=== PATIENT | female | born 1955 | race Caucasian/White ===

== ENCOUNTER → 2016-06-23 | Outpatient (CLI) | payer BC ==
[~2016-06-23] MED LIST: ACET-386; ADVAIR; ALBU17AE23; CETI1TAB2; OMEP40CA36; PANT40TA2 PO; [UNRECOGNIZED DRUG - OTHER]
--- NOTE | 2016-06-26 13:51 | Diagnostic Imaging Report ---
Bilateral screening mammogram The current study was also evaluated with a Computer Aided Detection (CAD) system. INDICATION: Screening. No current complaints stated on the questionnaire. COMPARISON: 05/14/2015. FINDINGS: The breasts are composed of scattered fibroglandular densities. Slightly more dense parenchyma in the periareolar region, however, similar to prior exams. Suggestion of an intramammary lymph node in the axillary tail of the left breast is noted. Allowing for technique and positional differences, no suspicious change is seen. IMPRESSION: No significant change. ACR BI-RADS Category 2: Benign findings. Result letter will be mailed to the patient. Note: At least 10% of breast cancer is not imaged by mammography. Dictated by: Dictated on workstation # [id number]
== END ==
LOC: RAD 14:31
PROVIDERS: ATTEND Obstetrics & Gynecology
DX: Z12.31 Encounter for screening mammogram for malignant neoplasm of breast (principal)
CPT/HCPCS: 77067

== ENCOUNTER → 2016-11-23 | Outpatient (CLI) | payer BC ==
--- NOTE | 2016-11-23 12:51 | Diagnostic Imaging Report ---
PROCEDURE: US abdomen complete. TECHNIQUE: Multiple real-time grayscale images were obtained over the abdomen in various projections. INDICATION: Abdominal bloating FINDINGS: The pancreas appears unremarkable. The liver is fairly homogeneous with no focal lesion seen. Hepatopedal flow in the portal vein is seen. The CBD is 5 mm in caliber. The gallbladder demonstrates no stones or wall thickening. Sonographic Way sign is negative. The abdominal aorta is normal in caliber. The IVC appears normal. The right kidney is 9.4 CM and the left kidney is 10.2 CM in length. No hydronephrosis or focal lesion. The spleen is 8 cm in length, normal. No ascites or fluid collection is seen. IMPRESSION: Unremarkable exam. Dictated by: Dictated on workstation # [id number]
== END ==
LOC: RAD 07:42
PROVIDERS: ATTEND Obstetrics & Gynecology
DX: R19.8 Other specified symptoms and signs involving the digestive system and abdomen (principal); N94.89 Other specified conditions associated with female genital organs and menstrual cycle
CPT/HCPCS: 76700

== ENCOUNTER → 2017-07-17 | Outpatient (CLI) | payer BC ==
--- NOTE | 2017-07-17 18:56 | Diagnostic Imaging Report ---
INDICATION: Routine screening. Comparison is made with prior exam from 06/23/2016 and 05/14/2015. 2-D and 3-D bilateral screening mammography was performed with CAD. The current study was also evaluated with a Computer Aided Detection (CAD) system. FINDINGS: Scattered fibroglandular densities are identified bilaterally. There are benign calcifications bilaterally. No dominant mass or malignant-appearing microcalcifications are seen. The axillae are unremarkable. IMPRESSION: No mammographic features suspicious for malignancy are identified. ACR BI-RADS Category 2: Benign findings. Result letter will be mailed to the patient. Note: At least 10% of breast cancer is not imaged by mammography. Dictated by: Dictated on workstation # [id number]
== END ==
LOC: RAD 14:22
PROVIDERS: ATTEND Obstetrics & Gynecology
DX: Z12.31 Encounter for screening mammogram for malignant neoplasm of breast (principal)
CPT/HCPCS: 77067

== ENCOUNTER 2017-11-20 13:32 | Outpatient (RCR) | payer BC | END 2017-11-26 07:43 | disposition home or self-care (01) | PROVIDERS: ATTEND Nurse Practitioner Family | DX: M76.32 Iliotibial band syndrome, left leg (principal); M54.5 Low back pain ==

== ENCOUNTER 2017-12-07 14:38 | Outpatient (RCR) | payer BC | END 2017-12-07 15:29 | disposition home or self-care (01) | PROVIDERS: ATTEND Nurse Practitioner Family | DX: M76.32 Iliotibial band syndrome, left leg (principal); M54.5 Low back pain ==

== ENCOUNTER → 2018-07-23 | Outpatient (CLI) | payer BC ==
--- NOTE | 2018-07-23 18:41 | Diagnostic Imaging Report ---
INDICATION: Routine screening. COMPARISON is made with prior mammograms from 07/17/2017 and 06/23/2016. TECHNIQUE: 2-D and 3-D bilateral screening mammography was performed with CAD. FINDINGS: Scattered fibroglandular densities are identified bilaterally. The parenchymal pattern is stable. No mass or malignant-appearing microcalcifications are seen. Axillae are unremarkable. IMPRESSION: BI-RADS category 1. No mammographic features suspicious for malignancy are identified. ACR BI-RADS Category 1: Negative. Result letter will be mailed to the patient. Note: At least 10% of breast cancer is not imaged by mammography. Dictated by: Dictated on workstation # [id number]
== END ==
LOC: RAD 12:40
PROVIDERS: ATTEND Obstetrics & Gynecology
DX: Z12.31 Encounter for screening mammogram for malignant neoplasm of breast (principal)
CPT/HCPCS: 77067

== ENCOUNTER → 2020-01-06 | Outpatient (CLI) | payer MEDICARE, OTHER ==
--- NOTE | 2020-01-07 09:15 | Diagnostic Imaging Report ---
INDICATION: Routine screening. COMPARISON: 07/23/2018 and 07/17/2017. TECHNIQUE: 2D and 3D bilateral screening mammography was performed with CAD. FINDINGS: Scattered fibroglandular densities are identified bilaterally. The parenchymal pattern is stable. No mass or malignant appearing microcalcifications are seen. The axillae are unremarkable. IMPRESSION: No mammographic features suspicious for malignancy are identified. ACR BI-RADS Category 1: Negative. Result letter will be mailed to the patient. Note: At least 10% of breast cancer is not imaged by mammography. Dictated by: Dictated on workstation # [id number]
== END ==
LOC: RAD 15:30
PROVIDERS: ATTEND Obstetrics & Gynecology
DX: Z12.31 Encounter for screening mammogram for malignant neoplasm of breast (principal)
CPT/HCPCS: 77063; 77067

== ENCOUNTER → 2020-07-27 | Outpatient (CLI) | payer MEDICARE, OTHER ==
--- NOTE | 2020-07-27 19:56 | Diagnostic Imaging Report ---
INDICATION: Fall with sacral pain. TIME OF EXAM: 3:14 PM Multiple views of the sacrum and coccyx were obtained. The sacral arcuate lines appear to be intact. SI joints are non-widened. Sacrococcygeal alignment is normal. No definite fracture is detected. IMPRESSION: No acute bony abnormality is detected. Dictated by: Dictated on workstation # [id number]
== END ==
LOC: RAD
PROVIDERS: ATTEND Family Medicine
DX: M53.3 Sacrococcygeal disorders, not elsewhere classified (principal); W19.XXXA Unspecified fall, initial encounter
CPT/HCPCS: 72220

== ENCOUNTER → 2020-08-17 | Outpatient (CLI) | payer MEDICARE, OTHER ==
--- NOTE | 2020-08-17 14:48 | Diagnostic Imaging Report ---
INDICATION: Fall. Back pain. COMPARISON: None FINDINGS: Frontal and lateral views of the lumbar spine were obtained. Alignment and vertebral heights are maintained. There is no fracture or destructive process. Mild multilevel degenerative disease is noted in the lumbar spine. Limited views of the abdomen demonstrate nonobstructive bowel gas pattern. IMPRESSION: 1. No acute fracture or dislocation of the lumbar spine. 2. Mild multilevel degenerative changes. Dictated by: Dictated on workstation # [id number]
== END ==
LOC: RAD 14:07
PROVIDERS: ATTEND Nurse Practitioner Family
DX: M47.816 Spondylosis without myelopathy or radiculopathy, lumbar region (principal)
CPT/HCPCS: 72100

== ENCOUNTER → 2020-08-24 | Outpatient (CLI) | payer MEDICARE, OTHER ==
--- NOTE | 2020-08-24 19:08 | Diagnostic Imaging Report ---
PROCEDURE: MRI lumbar spine. TECHNIQUE: Multiplanar, multisequence MRI of the lumbar spine was performed without contrast. DATE: August 24, 2020. COMPARISON: MRI lumbar spine September 27, 2015. INDICATION: 64-year-old female, fall in the shower. Low back pain. FINDINGS: The alignment of the lumbar spine is unremarkable. There is no compression deformity or other acute fracture. There is no focal concerning bone lesion. The visualized cord and conus medullaris is unremarkable and terminates at the L1-L2 level. There is mild disc height loss at L2-L3 and L3-L4. There is moderate to severe disc height loss at L4-L5. There are adjacent Modic endplate degenerative related changes. L1-L2: There is no disc bulge. The facet joints and ligamentum flavum are unremarkable. There is no foraminal narrowing. There is no spinal canal stenosis. L2-L3: There is no disc bulge. The facet joints and ligamentum flavum are unremarkable. There is no foraminal narrowing. There is no spinal canal stenosis. L3-L4: There is mild diffuse disc bulge. The facet joints and ligamentum flavum are unremarkable. There is no foraminal narrowing. There is no spinal canal stenosis. L4-L5: There is mild diffuse disc bulge. The facet joints and ligamentum flavum are unremarkable. There is mild right foraminal narrowing. There is no spinal canal stenosis. L5-S1: There is no disc bulge. The facet joints and ligamentum flavum are unremarkable. There is no foraminal narrowing. There is no spinal canal stenosis. IMPRESSION: 1. Mild diffuse disc bulges at L3-L4 and L4-L5 with mild right foraminal narrowing at L4-L5. 2. No focal concerning bone lesion or compression deformity. 3. Findings are very similar to September 27, 2015 MRI. Dictated by: Dictated on workstation # [id number]
== END ==
LOC: RAD 15:16
PROVIDERS: ATTEND Nurse Practitioner Family
DX: M51.26 Other intervertebral disc displacement, lumbar region (principal); M48.061 Spinal stenosis, lumbar region without neurogenic claudication
CPT/HCPCS: 72148

== ENCOUNTER 2020-10-21 15:42 | Outpatient (RCR) | payer MEDICARE, OTHER | END 2020-11-23 | disposition home or self-care (01) | PROVIDERS: ATTEND Nurse Practitioner Family | DX: M54.5 Low back pain (principal) ==

== ENCOUNTER → 2021-02-01 | Outpatient (CLI) | payer MEDICARE, OTHER ==
--- NOTE | 2021-02-01 14:58 | Diagnostic Imaging Report ---
Indication: Routine screening. Comparison is made with prior mammogram 01/06/2020 and 07/23/2018. 2-D and 3-D bilateral screening mammography was performed with CAD. Scattered fibroglandular densities are identified bilaterally. The parenchymal pattern is stable. Intraparenchymal lymph node in the upper outer left breast posterior depth stable. No spiculated mass or malignant-appearing microcalcifications are seen. Axillae are unremarkable. IMPRESSION: BI-RADS Category 2 No mammographic features suspicious for malignancy are identified. ACR BI-RADS Category 2: Benign findings. Result letter will be mailed to the patient. Note: At least 10% of breast cancer is not imaged by mammography. Dictated by: Dictated on workstation # [id number]
--- NOTE | 2021-02-01 15:48 | Diagnostic Imaging Report ---
INDICATION: Postmenopausal screening for osteoporosis COMPARISON: 03/25/2015 FINDINGS: AP Spine L1-L4: [BMD (g/cm2): 0.849] [T-Score: -2.9] [Z-Score: -0.9] [BMD Previous: 1.006] [BMD % Change: -15.6] LT Hip Neck: [BMD (g/cm2): 0.763] [T-Score: -2.0] [Z-Score: -0.2] LT Hip Total: [BMD (g/cm2):0.809] [T-Score:-1.6] [Z-Score: 0.0] [BMD Previous: 0.894] [BMD % Change: -9.5] RT Hip Neck: [BMD (g/cm2):0.820] [T-Score:-1.6] [Z-Score:0.2] RT Hip Total: [BMD (g/cm2):0.834] [T-score:-1.4] [Z-Score:0.2] [BMD Previous:0.895] [BMD % Change:-6.8] *Indicates significant change from prior examination based on 95% confidence level. World Health Organization criteria for BMD interpretation classify patients as Normal (T-score at or above -1.0), Osteopenic (T-score between -1.0 and -2.5) or Osteoporotic (T-score at or below -2.5). LIMITATIONS AND MODIFICATION: None. FRACTURE RISK (FRAX SCORE): The ten year probability of (%): Major Osteoporotic Fracture: [17.1] Hip Fracture: [2.9] IMPRESSION: 1. Osteoporosis. 2. Bone mineral density has decreased by a statistically significant amount, as detailed above. 3. See below National Osteoporosis Foundation guidelines on when to potentially initiate pharmacologic therapy. Based on the National Osteoporosis Foundation Guidelines, pharmacologic treatment should be initiated in any of the following, unless clinical conditions suggest otherwise: * Any patient with prior fragility fracture of the hip or vertebrae. A spine fracture indicates 5X risk for subsequent spine fracture and 2X risk for subsequent hip fracture. * Osteoporosis (T-score <-2.5). * Postmenopausal women and men age 50 and older with low bone mass/osteopenia (T-score between -1.0 and -2.5) by DXA and 10-year major osteoporotic fracture greater than 20% or a 10-year probability of hip fracture greater than 3%. These fracture risks are supplied above in the FRAX score, if applicable. * Clinician judgement and/or patient preferences may indicate treatment for people with 10-year fracture probabilities above or below these levels. Dictated by: Dictated on workstation # [id number]
== END ==
LOC: RAD 14:00
PROVIDERS: ATTEND Obstetrics & Gynecology
DX: Z13.820 Encounter for screening for osteoporosis (principal); Z12.31 Encounter for screening mammogram for malignant neoplasm of breast; M81.0 Age-related osteoporosis without current pathological fracture; Z78.0 Asymptomatic menopausal state
CPT/HCPCS: 77063; 77067; 77080

== ENCOUNTER → 2021-04-25 | Outpatient (RCR) | payer MEDICARE, OTHER | END | disposition home or self-care (01) | PROVIDERS: ATTEND Family Medicine | DX: M54.50 Low back pain, unspecified (principal); M25.551 Pain in right hip; M79.604 Pain in right leg; J45.909 Unspecified asthma, uncomplicated ==

== ENCOUNTER 2021-05-20 10:55 | Outpatient (CLI) | payer MEDICARE, OTHER ==
[~2021-05-20] VITALS: Ht 149.9 cm; Wt 55.0 kg
[2021-05-20] MEDS ORDERED: CATHETER FLUSH 10 ML SYR IVP SCH (11:15)
[2021-05-20] MEDS ORDERED: ZOLEDRONATE (NON-FORMULARY) 100 ML IV ONE (11:15)
[2021-05-20 11:23] VITALS: BP 135/66
== END 2021-05-20 12:34 ==
LOC: SDC 10:55
PROVIDERS: ATTEND Internal Medicine
DX: M81.0 Age-related osteoporosis without current pathological fracture (principal)
CPT/HCPCS: 96365

== ENCOUNTER 2021-05-25 13:01 | Outpatient (RCR) | payer MEDICARE, OTHER | END 2021-05-26 | disposition home or self-care (01) | PROVIDERS: ATTEND Family Medicine | DX: M54.50 Low back pain, unspecified (principal); M25.551 Pain in right hip; M79.604 Pain in right leg; J45.909 Unspecified asthma, uncomplicated ==

== ENCOUNTER 2021-06-22 14:18 | Outpatient (RCR) | payer MEDICARE, OTHER | END 2021-06-25 | disposition home or self-care (01) | PROVIDERS: ATTEND Family Medicine | DX: M54.50 Low back pain, unspecified (principal); M25.551 Pain in right hip; M79.604 Pain in right leg; R53.1 Weakness; J45.909 Unspecified asthma, uncomplicated ==

== ENCOUNTER → 2021-07-05 | Outpatient (CLI) | payer MEDICARE, OTHER ==
--- NOTE | 2021-07-05 15:59 | Diagnostic Imaging Report ---
PROCEDURE: MR imaging cervical spine without contrast. TECHNIQUE: Multiplanar, multisequence MR imaging of the cervical spine was performed without contrast. DATE: July 05, 2021. COMPARISON: Cervical spine radiographs February 27, 2015. INDICATION: 65-year-old female, neck pain and cervical radiculopathy. FINDINGS: The alignment of the cervical spine is unremarkable. There is no evidence of a diffuse marrow infiltrating or replacing process. There is no focal concerning bone lesion. The visualized spinal cord is unremarkable. There are mild endplate degenerative related changes at C6-C7 with relatively well-preserved disc heights. C2-C3: There is no disc bulge. The uncovertebral and facet joints are unremarkable. There is no foraminal narrowing. There is no spinal canal stenosis. C3-C4: There is no disc bulge. The uncovertebral and facet joints are unremarkable. There is no foraminal narrowing. There is no spinal canal stenosis. C4-C5: There is no disc bulge. The uncovertebral and facet joints are unremarkable. There is no foraminal narrowing. There is no spinal canal stenosis. C5-C6: There is no disc bulge. There are bilateral uncovertebral degenerative changes. There is mild bilateral foraminal narrowing. There is no spinal canal stenosis. C6-C7: There is a posterior disc osteophyte complex. There are mild bilateral uncovertebral degenerative changes. There is no foraminal narrowing. There is no high-grade spinal canal stenosis. C7-T1: There is no disc bulge. The uncovertebral and facet joints are unremarkable. There is no foraminal narrowing. There is no spinal canal stenosis. IMPRESSION: 1. Posterior disc osteophyte complex at C6-C7 with mild bilateral uncovertebral degenerative changes. There is no high-grade foraminal or spinal stenosis at this level. 2. Bilateral uncovertebral degenerative changes at C5-C6 with mild bilateral foraminal narrowing. 3. No focal concerning bone lesion. 4. No abnormal cord signal. Dictated by: Dictated on workstation # [id number]
--- NOTE | 2021-07-05 17:28 | Diagnostic Imaging Report ---
TECHNIQUE: Multiplanar, multisequence MRI of the thoracic spine is performed without contrast. COMPARISON: 02/27/2015. REASON FOR EXAM: Chronic mid back pain. FINDINGS: No acute fracture or dislocation is seen in the thoracic spine. Alignment is anatomic. No suspicious focal osseous lesions. No evidence of acute spinal canal stenosis. The intrinsic signal within the thoracic spinal cord is normal. No evidence of cord expansion. No epidural collections. No significant degenerative changes are seen in the thoracic spine. No high-grade spinal canal or foraminal stenosis. The paraspinal soft tissues are unremarkable. The included lungs are clear. IMPRESSION: 1. No acute fracture or dislocation in the thoracic spine. 2. No significant spinal canal or foraminal stenosis. Dictated by: Dictated on workstation # [id number]
== END ==
LOC: RAD 14:00
PROVIDERS: ATTEND Nurse Practitioner Family
DX: M54.12 Radiculopathy, cervical region (principal); M54.6 Pain in thoracic spine; G89.29 Other chronic pain
CPT/HCPCS: 72141; 72146

== ENCOUNTER 2021-07-22 14:20 | Outpatient (RCR) | payer MEDICARE, OTHER | END 2021-07-26 | disposition home or self-care (01) | PROVIDERS: ATTEND Family Medicine | DX: M54.9 Dorsalgia, unspecified (principal); M25.551 Pain in right hip; M79.604 Pain in right leg; R53.1 Weakness; J45.909 Unspecified asthma, uncomplicated ==

== ENCOUNTER 2021-08-24 15:15 | Outpatient (RCR) | payer MEDICARE, OTHER | END 2021-08-25 | disposition home or self-care (01) | PROVIDERS: ATTEND Family Medicine | DX: M54.9 Dorsalgia, unspecified (principal); J45.909 Unspecified asthma, uncomplicated; M79.606 Pain in leg, unspecified ==

== ENCOUNTER 2022-03-04 19:04 | Emergency (ER) | payer MEDICARE, OTHER ==
[~2022-03-04] VITALS: Ht 149.9 cm; Wt 54.4 kg
--- NOTE | 2022-03-04 19:40 | ED Head Injury ---
General Chief Complaint: Trauma-Non Activation Stated Complaint: FALL - HEAD LAC Nursing Triage Note: PT AMBULATE TO ROOM 05 WITHOUT DIFFICULTY WITH C/O LAC TO POST SCALP. PT REPORTS SHE WAS WALKING DOWN THE STAIRS AT HOME AND FELL 3-4 STEPS FROM BOTTOM HITTING HEAD ON A PIECE OF FURNITURE AT THE BOTTOM. PT DENIES LOC, N/V. Source: patient Exam Limitations: no limitations History of Present Illness Date Seen by Provider: Mar 04, 2022 Time Seen by Provider: 19:23 Initial Comments 66-year-old female presents to ED with after she tripped on the stairs and fell forwards towards her right side hitting her parietal region of her head resulting in a laceration. Reports right shoulder and right knee pain due to the fall, but states the pain has improved and her range of motion is normal. States she fell down approximately 4 steps, takes a baby aspirin twice a week. Denies loss of consciousness, denies dizziness/lightheadedness prior to fall. Allergies and Home Medications Allergies Coded Allergies: Penicillins (Unverified Allergy, Mild, 10/25/08) Sulfa (Sulfonamide Antibiotics) (Unverified Allergy, Mild, 10/25/08) iodine (Unverified Allergy, Mild, 10/25/08) latex (Verified Allergy, Unknown, 05/20/21) codeine (Unverified Adverse Reaction, Severe, HALLUCINATIONS, 10/25/08) Patient Home Medication List Home Medication List Reviewed: Yes Albuterol (Ventolin) 17 Gm Aerosol, (Reported) Entered as Reported by: LYDIA SILVA on 10/25/08 1405 P-Ephed Hcl/Cetirizine Hcl (Zyrtec-D Tablet) 1 Tab Tab, (Reported) Entered as Reported by: LYDIA SILVA on 10/25/08 1406 Pantoprazole Sodium (Protonix) 40 Mg Tablet., 40 MG PO DAILY Prescribed by: FARA HIGGINBOTHAM on 11/26/15 1118 Review of Systems Review of Systems Constitutional: see HPI Past Thutodx-Ogcglf-Zujtpz Hx Patient Social History Tobacco Use?: No Smoking Status: Never a Smoker Smokeless Tobacco Frequency: Never a User Use of E-Cig and/or Vaping dev: No Use of E-Cig and/or Vaping Nilson: Never a User Substance use?: No Alcohol Use?: No Pt feels they are or have been: No Past Medical History Reproductive Disorders: Yes Physical Exam Vital Signs Vital Signs - First Documented Capillary Refill : Less Than 3 Seconds Height, Weight, BMI Height: 5'1.00" Weight: 123lbs. 0.0oz. 55.916483ht; 24.00 BMI Method: General Appearance: WD/WN, no apparent distress HEENT: PERRL/EOMI, TMs normal Neck: full range of motion, supple, normal inspection, tender lateral Cardiovascular: regular rate, rhythm, no edema, no gallop, no JVD, no murmur Respiratory: lungs clear, normal breath sounds, no respiratory distress, no accessory muscle use Extremities: normal range of motion, non-tender, normal inspection Skin: normal color, warm/dry, other (laceration, hematoma posterior head) Procedures/Interventions Wound Location: Scalp Other Wound Location 1 cm Wound Explored: clean Irrigated w/ Saline (ccs): 250 Staple Repair: Stapler 35W Number of Sutures: 3 Progress/Results/Core Measures Results/Orders My Orders Orders - GORDON LANGE APRN Ct Head/Cervical Spine Wo (03/04/22 19:31) Shoulder, Right, 3 Views (03/04/22 20:10) Vital Signs/I&O 03/04/22 03/04/22 03/04/22 19:10 19:10 20:55 Temp 36.8 36.8 36.2 Pulse 89 89 81 Resp 17 17 16 B/P (MAP) 149/77 (101) 149/77 (101) 141/72 Pulse Ox 99 98 O2 Delivery Room Air Room Air Room Air Blood Pressure Mean: 101 Progress Progress Note #1: Time: 19:42 Progress Note Patient seen and evaluated, resting comfortably on the bed, no acute distress. Based on exam, presentation, and [place] CT head score (age > 65, aspirin use, and dangerous mechanism), will order CT scan of the head and neck. Progress Note #2: Time: 20:11 Progress Note 1 cm laceration noted to posterior head, 3 yaneli placed. Considered x-ray of the right shoulder due to pain, not ordered due to normal range of motion. Patient requesting x-ray of the right shoulder, will order Progress Note #3: Time: 20:32 Progress Note Interpretation of right shoulder x-ray completed by provider, no acute fractures noted. Official radiology read reported the same interpretation. Radiology report CT of the head and neck reviewed, no acute findings for intracranial hemorrhage, or fracture. Progress Note #4: Time: 20:41 Progress Note Test results discussed with patient. Return precautions provided for closed head injuries. Follow-up instructions provided for staple removal and shoulder pain. Diagnostic Imaging Diagonstic Imaging: CT Plain Films/CT/US/NM/MRI: c-spine, head Comments [facility], [place] NAME: ARNAUD DIGGS [facility] REC#: [id number] PT STATUS: REG ER : 1955 PHYSICIAN: GORDON LANGE APRN ADMIT DATE: 03/04/22/ER Signed Date of Exam:03/04/22 CT HEAD/CERVICAL SPINE WO PROCEDURE: CT head and CT cervical spine without contrast. TECHNIQUE: Multiple contiguous axial images were obtained through the brain and cervical spine without the use of intravenous contrast. Sagittal and coronal reformations through the cervical spine were then performed. Auto Exposure Controls were utilized during the CT exam to meet ALARA standards for radiation dose reduction. DATE: March 04, 2022. COMPARISON: MRI cervical spine July 05, 2021. INDICATION: 66-year-old female, fall. Head and neck pain. Laceration of the posterior scalp. FINDINGS: There is no identified skull fracture. The ventricles and cerebral spinal fluid spaces are of normal size and configuration for the patient's age. There is no mass effect or midline shift. There is no acute intracranial hemorrhage. There is no abnormal extra-axial fluid collection. There is a very small amount of fluid layering in the sphenoid sinuses, bilaterally. There is no identified facet joint subluxation or dislocation. There is moderate disc height loss at C3-C4, C4-C5 and C5-C6. There are posterior disc osteophyte complexes at these levels. CT is limited for assessment of disc pathology as well as additional non-bony causes of pathology in the spinal canal. There is no identified acute fracture of the cervical spine. The visualized portions of the lung apices are clear. IMPRESSION: 1. No identified acute intracranial abnormality. 2. No identified acute abnormality of the cervical spine. 3. Disc degenerative changes of the cervical spine. 4. Very small amounts of fluid layering in the sphenoid sinuses. Recommend correlation for possible acute sinusitis. Dictated by: Dictated on workstation # [id number] Dict: 03/04/221949 Trans: 03/04/222004 PJE [id number] Interpreted by: SUGEY ODONNELL MD Electronically signed by: SUGEY ODONNELL MD 03/04/222004 Diagonstic Imaging: Xray Plain Films/CT/US/NM/MRI: other (shoulder) Comments [facility], [place] NAME: ARNAUD DIGGS [facility] REC#: [id number] PT STATUS: REG ER : 1955 PHYSICIAN: GORDON LANGE APRN ADMIT DATE: 03/04/22/ER Draft Date of Exam:03/04/22 SHOULDER, RIGHT, 3 VIEWS EXAMINATION: Right shoulder radiographs, 3 views. COMPARISON: None. HISTORY: 66-year-old female, right shoulder pain. FINDINGS: There is no identified acute fracture. The humeral head is normally positioned relative to the glenoid. The glenohumeral joint space is well-maintained. The acromioclavicular joint is normally aligned. There are no prominent acromioclavicular degenerative changes. IMPRESSION: Unremarkable radiographs of the right shoulder. Dictated on workstation # [id number] Dict: 03/04/222022 Trans: 03/04/222024 PJE [id number] Interpreted by: SUGEY ODONNELL MD Electronically signed by: Departure Impression Primary Impression: Head injury due to trauma Qualified Codes: S09.90XA - Unspecified injury of head, initial encounter Additional Impressions: Fall (on) (from) other stairs and steps, initial encounter Laceration of head Qualified Codes: S01.01XA - Laceration without foreign body of scalp, initial encounter Shoulder injury Disposition: 01 HOME, SELF-CARE Condition: Stable Departure-Patient Inst. Decision time for Depature: 20:35 Referrals: LUNA NICHOLAS MD (PCP/Family) Primary Care Physician Patient Instructions: Laceration Repair With Mobile ED, Head Injury in Adults Add. Discharge Instructions: Plan: 1. Discharge home. 2. Observe the patient for 24-48 hours. Contact your family physician, or return to the ER immediately if any of the following are observed. -Repeated vomiting -Confusion, delirium or disorientation -Blurred vision or double vision -A difference in pupil size comparing left to right (black part of the eye) -Twitching or convulsions -Clear or blood fluid from the nose or ears -Persistent headaches or the worst headache of your life -Weakness of face, arm or leg muscles -Difficulty in arousing patient (the patient should be awakened every 2 hours during the first night) 3. Take nothing stronger than Tylenol or Ibuprofen for pain. Take per package directions. 4. Avoid alcohol intake. 5. Return to ER for any other new, concerning, or worsening symptoms. WOUND CARE 6. Keep wound clean and dry 7. Leave open to air after a few days. 8. Make apply ice pack for swelling. 9. Despite the best care, any wound can become infected. Watch for increase in redness, swelling, increase in pain, drainage, or fever and report any of these to your physician or return to the emergency room. 10. Return to the ER in 7-10 days to have your 3 yaneli removed. SHOULDER INJURY 11. No fracture, may have injury to muscles/ligaments 12. Apply ice for pain. 13. Follow up with primary care provider if pain continues. All discharge instructions reviewed with patient and/or family. Voiced understanding. GORDON LANGE APRN Mar 04, 2022 19:40
--- NOTE | 2022-03-04 20:01 | Diagnostic Imaging Report ---
PROCEDURE: CT head and CT cervical spine without contrast. TECHNIQUE: Multiple contiguous axial images were obtained through the brain and cervical spine without the use of intravenous contrast. Sagittal and coronal reformations through the cervical spine were then performed. Auto Exposure Controls were utilized during the CT exam to meet ALARA standards for radiation dose reduction. DATE: March 04, 2022. COMPARISON: MRI cervical spine July 05, 2021. INDICATION: 66-year-old female, fall. Head and neck pain. Laceration of the posterior scalp. FINDINGS: There is no identified skull fracture. The ventricles and cerebral spinal fluid spaces are of normal size and configuration for the patient's age. There is no mass effect or midline shift. There is no acute intracranial hemorrhage. There is no abnormal extra-axial fluid collection. There is a very small amount of fluid layering in the sphenoid sinuses, bilaterally. There is no identified facet joint subluxation or dislocation. There is moderate disc height loss at C3-C4, C4-C5 and C5-C6. There are posterior disc osteophyte complexes at these levels. CT is limited for assessment of disc pathology as well as additional non-bony causes of pathology in the spinal canal. There is no identified acute fracture of the cervical spine. The visualized portions of the lung apices are clear. IMPRESSION: 1. No identified acute intracranial abnormality. 2. No identified acute abnormality of the cervical spine. 3. Disc degenerative changes of the cervical spine. 4. Very small amounts of fluid layering in the sphenoid sinuses. Recommend correlation for possible acute sinusitis. Dictated by: Dictated on workstation # [id number]
--- NOTE | 2022-03-04 20:25 | Diagnostic Imaging Report ---
EXAMINATION: Right shoulder radiographs, 3 views. COMPARISON: None. HISTORY: 66-year-old female, right shoulder pain. FINDINGS: There is no identified acute fracture. The humeral head is normally positioned relative to the glenoid. The glenohumeral joint space is well-maintained. The acromioclavicular joint is normally aligned. There are no prominent acromioclavicular degenerative changes. IMPRESSION: Unremarkable radiographs of the right shoulder. Dictated by: Dictated on workstation # [id number]
[2022-03-04 20:55] VITALS: BP 141/72
== END 2022-03-04 20:55 | disposition home or self-care (01) ==
LOC: EDUNIT# 19:04 → ER 19:05
DX: S09.90XA Unspecified injury of head, initial encounter (principal); S01.01XA Laceration without foreign body of scalp, initial encounter; S49.91XA Unspecified injury of right shoulder and upper arm, initial encounter; Z79.82 Long term (current) use of aspirin; W10.9XXA Fall (on) (from) unspecified stairs and steps, initial encounter; Y92.009 Unspecified place in unspecified non-institutional (private) residence as the place of occurrence of the external cause
CPT/HCPCS: 70450; 72125; 73030

== ENCOUNTER → 2022-03-09 | Outpatient (CLI) | payer MEDICARE, OTHER ==
--- NOTE | 2022-03-09 17:41 | Diagnostic Imaging Report ---
INDICATION: Fall, pain. Two-view right ribs performed. FINDINGS: The right lung clear. No effusion or pneumothorax. The sergey and mediastinal contours normal. No free air beneath the right diaphragm. Degenerative changes to the right shoulder are present. The clavicle intact. No rib fracture deformity, focal pleural hematoma, bony erosion or cortical irregularity. IMPRESSION: Unremarkable right rib series. Dictated by: Dictated on workstation # [id number]
== END ==
LOC: RAD 15:51
PROVIDERS: ATTEND Nurse Practitioner Family
DX: R07.81 Pleurodynia (principal)
CPT/HCPCS: 71100

== ENCOUNTER 2022-03-14 12:25 | Emergency (ER) | payer MEDICARE, OTHER ==
[2022-03-14] MEDS ORDERED: CEPHALEXIN 250 MG (KEFLEX) CAP PO STA (13:05)
--- NOTE | 2022-03-14 13:12 | ED General ---
General Chief Complaint: General Problems/Pain Stated Complaint: STAPLE REMOVAL | Nursing Triage Note: PT AMB TO RM 6 FOR STAPEL REMOVAL AND C/O R RIB PAIN AND R KNEE PAIN CONTINUTING SINCE THE ORIGINAL FALL. PT STATES SHE HAD OUTPAITNE XRAY OF RIBS THAT WAS CLEAR Source of Information: Patient, Old Records Exam Limitations: No Limitations History of Present Illness Date Seen by Provider: Mar 14, 2022 Time Seen by Provider: 12:34 Initial Comments Very pleasant 66-year-old female presenting for reevaluation after she had a fall 10 days ago presented to our ER. She had yaneli to her head which she came to get removed. She is having persistent right knee pain and right-sided rib pain. Better with Tylenol. She also try some gabapentin which helps her to sleep. She denies any new chest pain, shortness of breath, abdominal pain, nausea, vomiting, diarrhea, fever, chills, focal weakness or numbness, or any other concerns. She is ambulating without difficulty. She does note a "carpet burn" to her right knee which when her pants rub on it causes irritation and burning. She states she has noticed increasing redness to the area and she was wanting to be evaluated for an infection potentially. Allergies and Home Medications Allergies Coded Allergies: Penicillins (Unverified Allergy, Mild, 10/25/08) Sulfa (Sulfonamide Antibiotics) (Unverified Allergy, Mild, 10/25/08) iodine (Unverified Allergy, Mild, 10/25/08) latex (Verified Allergy, Unknown, 05/20/21) codeine (Unverified Adverse Reaction, Severe, HALLUCINATIONS, 10/25/08) Patient Home Medication List Home Medication List Reviewed: Yes Albuterol (Ventolin) 17 Gm Aerosol, (Reported) Entered as Reported by: LYDIA SILVA on 10/25/08 1405 P-Ephed Hcl/Cetirizine Hcl (Zyrtec-D Tablet) 1 Tab Tab, (Reported) Entered as Reported by: LYDIA SILVA on 10/25/08 1406 Pantoprazole Sodium (Protonix) 40 Mg Tablet., 40 MG PO DAILY Prescribed by: FARA HIGGINBOTHAM on 11/26/15 1118 Review of Systems Review of Systems Constitutional: No fever EENTM: no symptoms reported Respiratory: no symptoms reported Cardiovascular: no symptoms reported Gastrointestinal: no symptoms reported Genitourinary: no symptoms reported Musculoskeletal: see HPI Skin: see HPI Psychiatric/Neurological: No Symptoms Reported Hematologic/Lymphatic: No Symptoms Reported All Other Systems Reviewed Negative Unless Noted: Yes Past Fhurwll-Dwcyxb-Xcasiy Hx Patient Social History Tobacco Use?: No Substance use?: No Alcohol Use?: Yes Alcohol Frequency: Rarely Pt feels they are or have been: No Immunizations Up To Date Influenza Vaccine Up-to-Date: No; Not Current First/Initial COVID19 Vaccinat: YES Second COVID19 Vaccination Harsh: YES Third COVID19 Vaccination Date: YES Past Medical History Surgery/Hospitalization HX: OSTEOPOROSIS, ASTHMA CARPEL TUNNEL, APPY, Surgeries: Yes Reproductive Disorders: Yes Physical Exam Vital Signs Vital Signs - First Documented 03/14/22 12:30 Temp 36.6 Pulse 83 Resp 16 B/P (MAP) 142/76 (98) Capillary Refill : Height, Weight, BMI Height: 5'1.00" Weight: 123lbs. 0.0oz. 55.643775ym; 24.00 BMI Method: General Appearance: No Apparent Distress, WD/WN Eyes: Bilateral Eye Normal Inspection HEENT: PERRL/EOMI, Normal ENT Inspection, Pharynx Normal Neck: Full Range of Motion, Normal Inspection, Non Tender, Supple Respiratory: Lungs Clear, Normal Breath Sounds, No Accessory Muscle Use, No Respiratory Distress, Other (Right lateral chest wall tenderness to palpation) Cardiovascular: Regular Rate, Rhythm, No Edema, Normal Peripheral Pulses Gastrointestinal: Normal Bowel Sounds, Non Tender, Soft; No Guarding Back: Normal Inspection, No CVA Tenderness, No Vertebral Tenderness Extremity: Normal Capillary Refill, Normal Range of Motion, No Calf Tenderness, No Pedal Edema, Other (Right knee with a healing wound with scab present, some mild erythema that spreads roughly 1-1/2 cm around it, no significant warmth compared to the other knee, no drainage) Neurologic/Psychiatric: Alert, No Motor/Sensory Deficits, Normal Mood/Affect Skin: Normal Color, Warm/Dry Lymphatic: No Adenopathy Progress/Results/Core Measures Suspected Sepsis SIRS Temperature: Pulse: 83 Respiratory Rate: 16 Blood Pressure 142 /76 Mean: 98 Results/Orders My Orders Orders - ADAM KRUGER MD Cephalexin Capsule (Keflex Capsule) (03/14/22 13:05) Vital Signs/I&O 03/14/22 12:30 Temp 36.6 Pulse 83 Resp 16 B/P (MAP) 142/76 (98) Capillary Refill : Blood Pressure Mean: 98 Progress Note : Progress Note 66-year-old female with above history coming in due to getting her yaneli removed as well as evaluation for potential infection in her right knee and continued right-sided chest wall pain after the fall. ABCs were intact and vitals were stable on presentation. Physical exam with some very mild erythema to the right knee where the excoriation is present, does not look overtly infected, just appears like it is healing, certainly is possible this is early cellulitis, but she says it looked pretty stable with no changes to the redness. We will do a [id number] prescription where I will send in some Keflex and if the redness starts spreading she is to fill the prescription and then seek follow-up for reevaluation with a physician. In regards to the right-sided chest wall pain, x-rays were negative for fracture, I discussed she still could have clinically a rib fracture that is nondisplaced that potentially would have showed up on CT scan. I discussed that this would not really affect our management this far out, and likely is in its normal process of healing. She does not have any pneumothorax, normal vitals today with no clinical signs of pneumonia. I discussed pain management and offered multiple options including hydrocodone to help deal with the pain for the next couple of days. She states that she has some leftover from a previous prescription which she can take if she needs. Otherwise, I do not believe she has any large displaced fractures anywhere based on x-ray imaging. I do not believe she has an occult fracture in her knee given her ease of ambulation. I believe she is stable for discharge with outpatient follow-up. She was sent home with strict return precautions. Of note, the patient states she had a rash to penicillin as a child. We gave her a dose of Keflex in the ER and she did not have any type of reaction. Departure Impression Primary Impression: Fall Qualified Codes: W19.XXXD - Unspecified fall, subsequent encounter Additional Impressions: Knee contusion Qualified Codes: S80.01XD - Contusion of right knee, subsequent encounter Rib contusion Qualified Codes: S20.211D - Contusion of right front wall of thorax, subsequent encounter Disposition: HOME, SELF-CARE Condition: Stable Departure-Patient Inst. Decision time for Depature: 13:13 Referrals: LUNA NICHOLAS MD (PCP/Family) Primary Care Physician Patient Instructions: Rib Fracture or Bruised Rib ED Add. Discharge Instructions: I do think it is very possible you have a nondisplaced rib fracture that potentially would show up if we did more advanced imaging such as a CT scan. Since this will not really changeover operator, we will forego on this to prevent radiation and the cost associated with it. I recommend taking Tylenol as needed for pain. If you have persistent pain on top of this you can take the gabapentin or the hydrocodone that you mentioned that you have at home. You can also do typical things such as icing the area. Typically bones take roughly 6 weeks to heal if this is the case. With your knee, it does not necessarily look infected today, although it could be early infection. Please watch the skin closely and take pictures daily. If you notice redness spreading, new drainage from the wound that is not clear and is concerning, or new fever with it, then I would want you to fill the prescription for the Keflex and take this. If you do have concerns for infection and you fill the prescription, please follow-up with the doctor to be sure it is getting looked at again. We did give you a dose of this antibiotic in the ER since it is a cousin of penicillin, and you did not seem to have any type of reaction to it. You should be safe to take it if needed. Scripts Cephalexin (Cephalexin) 500 Mg Tablet 500 MG PO QID for 7 Days, #28 TAB Prov: ADAM KRUGER MD 03/14/22 Work/School Note: Work Release Form Date Seen in the Emergency Department: Mar 14, 2022 Return to Work: Mar 15, 2022 Restrictions: No Restrictions ADAM KRUGER MD Mar 14, 2022 13:12
[2022-03-14] MEDS ORDERED: CEPH500T PO (13:16)
[2022-03-14 13:27] VITALS: BP 124/62
== END 2022-03-14 13:27 | disposition home or self-care (01) ==
LOC: EDUNIT# 12:25 → ER 12:28
DX: S80.01XD Contusion of right knee, subsequent encounter (principal); S20.211D Contusion of right front wall of thorax, subsequent encounter; Z88.1 Allergy status to other antibiotic agents; W19.XXXA Unspecified fall, initial encounter
CPT/HCPCS: 99283

== ENCOUNTER → 2022-04-03 | Outpatient (CLI) | payer MEDICARE, OTHER ==
[~2022-04-03] MED LIST changes: +CEPH500T PO
--- NOTE | 2022-04-03 16:08 | Diagnostic Imaging Report ---
INDICATION: Routine screening. Comparison is made with prior mammogram with 02/01/2021 and 01/06/2020. 2-D and 3-D bilateral screening mammography was performed with CAD. Scattered fibroglandular densities are identified bilaterally. The parenchymal pattern is stable. No mass or malignant-appearing microcalcifications are seen. Axillae are unremarkable. IMPRESSION: No mammographic features suspicious for malignancy are identified. ACR BI-RADS Category 2: Benign findings. Result letter will be mailed to the patient. Note: At least 10% of breast cancer is not imaged by mammography. BI-RADS Category 2 Dictated by: Dictated on workstation # [id number]
== END ==
LOC: RAD 15:15
PROVIDERS: ATTEND Family Medicine
DX: Z12.31 Encounter for screening mammogram for malignant neoplasm of breast (principal); M81.0 Age-related osteoporosis without current pathological fracture
CPT/HCPCS: 77063; 77067

== ENCOUNTER → 2022-06-06 | Outpatient (CLI) | payer MEDICARE, OTHER ==
[~2022-06-06] MED LIST changes: +ASPI-999 PO; +BIOT1TAB22 PO; +CA C1TAB70 PO; +CETI1TAB61 PO; +ELUX100T PO; +FAMO40TA6 PO; +FLUO60GE TP; +FLUT1DIS28 IH; +FLUT9.9S NS; +FOLI400T4 PO; +HYOS-19 SL; +MONT-40 PO; +MV-M1TAB57 PO; +OMEG1CAP58 PO; +POTA99TA17 PO; +RT-ALBUINH INH; +TRIA15CR TP; +UBID50TA3 PO; +[UNRECOGNIZED DRUG - CODE] PO
--- NOTE | 2022-06-06 14:28 | Diagnostic Imaging Report ---
INDICATION: Postmenopausal state. COMPARISON: 02/01/2021. FINDINGS: AP Spine L1-L4: [BMD (g/cm2): 0.943] [T-Score: -2.1] [Z-Score: -0.1] [BMD Previous: 0.849] [BMD % Change: 11.1] LT Hip Neck: [BMD (g/cm2): 0.803] [T-Score: -1.7] [Z-Score: 0.2] LT Hip Total: [BMD (g/cm2):0.828] [T-Score:-1.4] [Z-Score: 0.2] [BMD Previous: 0.809] [BMD % Change: 2.3] RT Hip Neck: [BMD (g/cm2):0.824] [T-Score:-1.5] [Z-Score:0.3] RT Hip Total: [BMD (g/cm2):0.835] [T-score:-1.4] [Z-Score:0.3] [BMD Previous:0.834] [BMD % Change:0.1] *Indicates significant change from prior examination based on 95% confidence level. World Health Organization criteria for BMD interpretation classify patients as Normal (T-score at or above -1.0), Osteopenic (T-score between -1.0 and -2.5) or Osteoporotic (T-score at or below -2.5). LIMITATIONS AND MODIFICATION: None. FRACTURE RISK (FRAX SCORE): The ten year probability of (%): Major Osteoporotic Fracture: [16.1] Hip Fracture: [2.4] IMPRESSION: 1. Osteopenia (Low bone mass). 2. Bone mineral density within the lumbar spine has significantly increased since the prior examination, though some of this appearance could be artifactual secondary to degenerative hypertrophic changes. Bone mineral density within the bilateral hips has not significantly changed. 3. See below National Osteoporosis Foundation guidelines on when to potentially initiate pharmacologic therapy. Based on the National Osteoporosis Foundation Guidelines, pharmacologic treatment should be initiated in any of the following, unless clinical conditions suggest otherwise: * Any patient with prior fragility fracture of the hip or vertebrae. A spine fracture indicates 5X risk for subsequent spine fracture and 2X risk for subsequent hip fracture. * Osteoporosis (T-score <-2.5). * Postmenopausal women and men age 50 and older with low bone mass/osteopenia (T-score between -1.0 and -2.5) by DXA and 10-year major osteoporotic fracture greater than 20% or a 10-year probability of hip fracture greater than 3%. These fracture risks are supplied above in the FRAX score, if applicable. * Clinician judgement and/or patient preferences may indicate treatment for people with 10-year fracture probabilities above or below these levels. Dictated by: Dictated on workstation # [id number]
== END ==
LOC: RAD 12:30
PROVIDERS: ATTEND Internal Medicine
DX: M81.0 Age-related osteoporosis without current pathological fracture (principal); M85.80 Other specified disorders of bone density and structure, unspecified site; Z78.0 Asymptomatic menopausal state
CPT/HCPCS: 77080

== ENCOUNTER 2022-06-08 05:32 | Outpatient (CLI) | payer MEDICARE, OTHER ==
[~2022-06-08] VITALS: Ht 149.9 cm; Wt 53.2 kg
[~2022-06-08 05:32] MED LIST changes: -ASPI-999 PO; -BIOT1TAB22 PO; -CA C1TAB70 PO; -CETI1TAB61 PO; -ELUX100T PO; -FAMO40TA6 PO; -FLUO60GE TP; -FLUT1DIS28 IH; -FLUT9.9S NS; -FOLI400T4 PO; -HYOS-19 SL; -MONT-40 PO; -MV-M1TAB57 PO; -OMEG1CAP58 PO; -POTA99TA17 PO; -RT-ALBUINH INH; -TRIA15CR TP; -UBID50TA3 PO; -[UNRECOGNIZED DRUG - CODE] PO
[2022-06-08] MEDS ORDERED: ASPI-999 PO (15:04)
[2022-06-08] MEDS ORDERED: MONT-40 PO (15:04)
[2022-06-08] MEDS ORDERED: OMEG1CAP58 PO (15:04)
[2022-06-08] MEDS ORDERED: POTA99TA17 PO (15:04)
[2022-06-08] MEDS ORDERED: UBID50TA3 PO (15:04)
[2022-06-08] MEDS ORDERED: MV-M1TAB57 PO (15:04)
[2022-06-08] MEDS ORDERED: FLUT1DIS28 IH (15:04)
[2022-06-08] MEDS ORDERED: FLUT9.9S NS (15:04)
[2022-06-08] MEDS ORDERED: CA C1TAB70 PO (15:04)
[2022-06-08] MEDS ORDERED: TRIA15CR TP (15:04)
[2022-06-08] MEDS ORDERED: [UNRECOGNIZED DRUG - CODE] PO (15:04)
[2022-06-08] MEDS ORDERED: BIOT1TAB22 PO (15:04)
[2022-06-08] MEDS ORDERED: FOLI400T4 PO (15:04)
[2022-06-08] MEDS ORDERED: FLUO60GE TP (15:04)
[2022-06-08] MEDS ORDERED: RT-ALBUINH INH (15:04)
[2022-06-08] MEDS ORDERED: CETI1TAB61 PO (15:04)
[2022-06-08] MEDS ORDERED: ELUX100T PO (15:04)
[2022-06-08] MEDS ORDERED: HYOS-19 SL (15:04)
[2022-06-08] MEDS ORDERED: FAMO40TA6 PO (15:04)
== END 2022-06-08 15:06 | disposition home or self-care (01) ==
LOC: PREOP 05:32
PROVIDERS: ATTEND Specialist
DX: Z01.818 Encounter for other preprocedural examination (principal)

== ENCOUNTER 2022-06-16 07:05 | Day surgery (SDC) | payer MEDICARE, OTHER ==
[~2022-06-16] VITALS: Ht 149.9 cm; Wt 53.2 kg
[~2022-06-16 07:05] MED LIST changes: +ASPI-999 PO; +BIOT1TAB22 PO; +CA C1TAB70 PO; +CETI1TAB61 PO; +ELUX100T PO; +FAMO40TA6 PO; +FLUO60GE TP; +FLUT1DIS28 IH; +FLUT9.9S NS; +FOLI400T4 PO; +HYOS-19 SL; +MONT-40 PO; +MV-M1TAB57 PO; +OMEG1CAP58 PO; +POTA99TA17 PO; +RT-ALBUINH INH; +TRIA15CR TP; +UBID50TA3 PO; +[UNRECOGNIZED DRUG - CODE] PO
[2022-06-16] MEDS ORDERED: MOXIFLOXACIN OPHTH SOLN 5 MG/ML 0.3 ML SYRINGE OP ONE (07:15)
[2022-06-16] MEDS ORDERED: POVIDONE (BETADINE) OPHTH SOLN 5% 30 ML OP ONE (07:15)
[2022-06-16] MEDS ORDERED: TIMOLOL 0.5% (CATARACTS) 0.3 ML BTL OU PRN (07:15)
[2022-06-16] MEDS ORDERED: MIDAZOLAM 2 MG/2 ML (VERSED) VIAL ONE (07:20)
[2022-06-16] MEDS: TETRACAINE 0.5% OPHTH SOLN 4 ML BTL (SINGLE DOSE ONLY) OU PRN ×4 (07:26→07:46)
[2022-06-16 07:32] VITALS: BP 131/64
[2022-06-16] MEDS: PHENYLEPHRINE 10% OPHTH (NEO-SYN) 5 ML BTL OU SCH ×3 (07:36→07:47)
[2022-06-16] MEDS: TROPICAMIDE 1% OPH SOLN (MYDRIACYL) 15 ML BTL OP SCH ×3 (07:36→07:47)
--- NOTE | 2022-06-16 07:42 | Ophthalmologist Pre-Op Note ---
Pre-Operative Progress Note H&P Reviewed The H&P was reviewed, patient examined and no changes noted. Date H&P Reviewed: Jun 16, 2022 Time H&P Reviewed: 07:42 Pre-Op Dx Cataract, Right Eye DONY MICHAEL MD Jun 16, 2022 07:42
--- NOTE | 2022-06-16 08:04 | Ophthalmology Operative Report ---
Cataract removal/placement IOL PREOPERATIVE DIAGNOSIS: Cataract Right Eye POSTOPERATIVE DIAGNOSIS: Cataract Right Eye PROCEDURE: Cataract removal and placement of posterior chamber implant, right eye SURGEON: Monroe Michael ANESTHESIA: Topical with sedation COMPLICATIONS: None ESTIMATED BLOOD LOSS: Minimal DESCRIPTION OF PROCEDURE: After proper informed consent was obtained, the patient, a 66 female, was taken to the Operating Room and the right eye was anesthetized with tetracaine. The right eye was then prepped and draped in the usual manner. A wire lid speculum was placed. A paracentesis was made at the left hand position. Preservative free lidocaine was injected into the anterior chamber followed by viscoelastic. A clear corneal incision was made in the temporal position. A capsulorrhexis was preformed and the central nuclear and cortical material were removed. The posterior capsule was polished and Josué 20.5 AU00T0 IOL was placed into the capsular bag. The residual viscoelastic was aspirated and balanced saline solution was injected into the anterior chamber. Moxifloxacin was injected into the anterior chamber. The wound was checked and found to be water tight. The patient tolerated the procedure well without complications. MONROE MICHAEL MD Jun 16, 2022 08:04
--- NOTE | 2022-06-16 08:06 | Ophthalmologist Pre-Op Note ---
Pre-Operative Progress Note H&P Reviewed The H&P was reviewed, patient examined and no changes noted. Date H&P Reviewed: Jun 16, 2022 Time H&P Reviewed: 08:06 Pre-Op Dx Cataract, Left Eye DONY MICHAEL MD Jun 16, 2022 08:06
--- NOTE | 2022-06-16 08:27 | Ophthalmology Operative Report ---
Cataract removal/placement IOL PREOPERATIVE DIAGNOSIS: Cataract Left Eye POSTOPERATIVE DIAGNOSIS: Cataract Left Eye PROCEDURE: Cataract removal and placement of posterior chamber implant, left eye SURGEON: Monroe Michael ANESTHESIA: Topical with sedation COMPLICATIONS: None ESTIMATED BLOOD LOSS: Minimal DESCRIPTION OF PROCEDURE: After proper informed consent was obtained, the patient, a 66 female, was taken to the Operating Room and the left eye was anesthetized with tetracaine. The left eye was then prepped and draped in the usual manner. A wire lid speculum was placed. A paracentesis was made at the left hand position. Preservative free lidocaine was injected into the anterior chamber followed by viscoelastic. A clear corneal incision was made in the temporal position. A capsulorrhexis was preformed and the central nuclear and cortical material were removed. The posterior capsule was polished and an Josué 28.0 AU00T0 was placed into the capsular bag. The residual viscoelastic was aspirated and balanced saline solution was injected into the anterior chamber. Moxifloxacin was injected into the anterior chamber. The wound was checked and found to be water tight. The patient tolerated the procedure well without complications. MONROE MICHAEL MD Jun 16, 2022 08:27
[2022-06-16 08:42] VITALS: BP 116/61
--- NOTE | 2022-06-16 13:03 | Anesthesia-General Post-Op ---
MAC Patient Condition Mental Status/LOC: Same as Preop Cardiovascular: Satisfactory Nausea/Vomiting: Absent Respiratory: Satisfactory Pain: Controlled Complications: Absent Post Op Complications Complications None Follow Up Care/Instructions Patient Instructions None needed. Anesthesiology Discharge Order Discharge Order Patient is doing well, no complaints, stable vital signs, no apparent adverse anesthesia problems. No complications reported per nursing. VERÓNICA POLANCO CRNA Jun 16, 2022 13:03
== END 2022-06-16 08:44 | disposition home or self-care (01) ==
LOC: SDC 07:05
PROVIDERS: ATTEND Specialist
DX: H25.9 Unspecified age-related cataract (principal); Z87.891 Personal history of nicotine dependence
CPT/HCPCS: 66984; V2632

== ENCOUNTER → 2022-06-23 | Outpatient (CLI) | payer MEDICARE, OTHER ==
--- NOTE | 2022-06-23 16:46 | Diagnostic Imaging Report ---
EXAMINATION: Right hip unilateral 2 or 3 views (w/pelvis when done). HISTORY: Hip pain. COMPARISON: None available. FINDINGS: There is mild right hip osteoarthritis. No fracture is seen. No dislocation. IMPRESSION: Moderate hip osteoarthritis without acute fracture. Dictated by: Dictated on workstation # [id number]
--- NOTE | 2022-06-23 17:27 | Diagnostic Imaging Report ---
CLINICAL INDICATION: Patient states she fell on right hip in February and has continued pain with walking. EXAM: X-ray of the sacroiliac joints, 3 views. COMPARISON: X-ray of the sacrum and coccyx dated 08/15/2020. FINDINGS: There is no fracture or dislocation. The sacroiliac joints are unremarkable. There is no bony erosive change involving the sacroiliac joints. There is a small phlebolith in the right side of the pelvis. There is lower lumbar spine degenerative spurs and disk space height loss. IMPRESSION: The sacroiliac joints show no significant abnormality. Dictated by: Dictated on workstation # [id number]
== END ==
LOC: RAD 13:53
PROVIDERS: ATTEND Family Medicine
DX: M16.11 Unilateral primary osteoarthritis, right hip (principal); M54.50 Low back pain, unspecified
CPT/HCPCS: 72202; 73502

== ENCOUNTER 2022-06-27 05:37 | Outpatient (CLI) | payer MEDICARE, OTHER | END 2022-06-28 17:11 | disposition home or self-care (01) | LOC: PREOP 05:37 | PROVIDERS: ATTEND Specialist | DX: Z01.818 Encounter for other preprocedural examination (principal) ==

== ENCOUNTER 2022-06-30 07:48 | Day surgery (SDC) | payer MEDICARE, OTHER ==
[~2022-06-30] VITALS: Ht 149 cm; Wt 53.2 kg
[2022-06-30] MEDS: TETRACAINE 0.5% OPHTH SOLN 4 ML BTL (SINGLE DOSE ONLY) OU PRN ×4 (08:03→08:17)
[2022-06-30] MEDS: TROPICAMIDE 1% OPH SOLN (MYDRIACYL) 15 ML BTL OP SCH ×3 (08:08→08:17)
[2022-06-30 08:09] VITALS: BP 136/70
[2022-06-30] MEDS: PHENYLEPHRINE 10% OPHTH (NEO-SYN) 5 ML BTL OU SCH ×3 (08:09→08:17)
[2022-06-30] MEDS ORDERED: TIMOLOL 0.5% (CATARACTS) 0.3 ML BTL OU PRN (08:15)
[2022-06-30] MEDS ORDERED: POVIDONE (BETADINE) OPHTH SOLN 5% 30 ML OP ONE (08:15)
[2022-06-30] MEDS ORDERED: MOXIFLOXACIN OPHTH SOLN 5 MG/ML 0.3 ML SYRINGE OP ONE (08:15)
[2022-06-30] MEDS ORDERED: MIDAZOLAM 2 MG/2 ML (VERSED) VIAL ONE (08:25)
--- NOTE | 2022-06-30 08:48 | Ophthalmologist Pre-Op Note ---
Pre-Operative Progress Note H&P Reviewed The H&P was reviewed, patient examined and no changes noted. Date H&P Reviewed: June 30, 2022 Time H&P Reviewed: 08:40 Pre-Op Dx Cataract, Right Eye DONY MICHAEL MD June 30, 2022 08:48
--- NOTE | 2022-06-30 09:04 | Ophthalmology Operative Report ---
Cataract removal/placement IOL PREOPERATIVE DIAGNOSIS: Cataract Right Eye POSTOPERATIVE DIAGNOSIS: Cataract Right Eye PROCEDURE: Cataract removal and placement of posterior chamber implant, right eye SURGEON: Monroe Michael ANESTHESIA: Topical with sedation COMPLICATIONS: None ESTIMATED BLOOD LOSS: Minimal DESCRIPTION OF PROCEDURE: After proper informed consent was obtained, the patient, a 66 female, was taken to the Operating Room and the right eye was anesthetized with tetracaine. The right eye was then prepped and draped in the usual manner. A wire lid speculum was placed. A paracentesis was made at the left hand position. Preservative free lidocaine was injected into the anterior chamber followed by viscoelastic. A clear corneal incision was made in the temporal position. A capsulorrhexis was preformed and the central nuclear and cortical material were removed. The posterior capsule was polished and Josué 31.0 SN60AT IOL was placed into the capsular bag. The residual viscoelastic was aspirated and balanced saline solution was injected into the anterior chamber. Moxifloxacin was injected into the anterior chamber. The wound was checked and found to be water tight. The patient tolerated the procedure well without complications. MONROE MICHAEL MD June 30, 2022 09:04
[2022-06-30 09:17] VITALS: BP 147/77
--- NOTE | 2022-06-30 13:08 | Anesthesia-General Post-Op ---
MAC Patient Condition Mental Status/LOC: Same as Preop Cardiovascular: Satisfactory Nausea/Vomiting: Absent Respiratory: Satisfactory Pain: Controlled Complications: Absent Post Op Complications Complications None Follow Up Care/Instructions Patient Instructions None needed. Anesthesiology Discharge Order Discharge Order Patient is doing well, no complaints, stable vital signs, no apparent adverse anesthesia problems. No complications reported per nursing. VERÓNICA POLANCO CRNA June 30, 2022 13:08
== END 2022-06-30 09:20 | disposition home or self-care (01) ==
LOC: SDC 07:48
PROVIDERS: ATTEND Specialist
DX: H25.9 Unspecified age-related cataract (principal); Z87.891 Personal history of nicotine dependence
CPT/HCPCS: 66984; V2632

== ENCOUNTER 2022-08-24 14:24 | Outpatient (RCR) | payer MEDICARE, OTHER | END 2022-08-25 | disposition home or self-care (01) | PROVIDERS: ATTEND Family Medicine | DX: M25.551 Pain in right hip (principal) ==

== ENCOUNTER → 2022-08-25 | Outpatient (CLI) | payer MEDICARE, OTHER ==
[~2022-08-25] MED LIST changes: +CATHETER FLUSH 10 ML SYR IVP SCH; +ZOLEDRONATE (RECLAST) 5 MG/100 ML IV ONE
[2022-08-25 13:58] VITALS: BP 115/57
== END ==
LOC: SDC 13:34
PROVIDERS: ATTEND Internal Medicine
DX: M81.0 Age-related osteoporosis without current pathological fracture (principal)

== ENCOUNTER 2022-09-21 14:32 | Outpatient (RCR) | payer MEDICARE, OTHER ==
[~2022-09-21 14:32] MED LIST changes: -CATHETER FLUSH 10 ML SYR IVP SCH; -ZOLEDRONATE (RECLAST) 5 MG/100 ML IV ONE
== END 2022-09-25 | disposition home or self-care (01) ==
PROVIDERS: ATTEND Family Medicine
DX: M25.551 Pain in right hip (principal)

== ENCOUNTER 2022-10-25 15:25 | Outpatient (RCR) | payer MEDICARE, OTHER | END 2022-10-26 | disposition home or self-care (01) | PROVIDERS: ATTEND Family Medicine | DX: M25.551 Pain in right hip (principal) ==

== ENCOUNTER → 2022-12-26 | Outpatient (RCR) | payer MEDICARE, OTHER | END | disposition home or self-care (01) | PROVIDERS: ATTEND Family Medicine | DX: M25.551 Pain in right hip (principal); R51.9 Headache, unspecified ==

== ENCOUNTER 2023-01-04 15:46 | Outpatient (RCR) | payer MEDICARE, OTHER | END 2023-01-25 | disposition home or self-care (01) | PROVIDERS: ATTEND Family Medicine | DX: M25.551 Pain in right hip (principal); R51.9 Headache, unspecified ==